=== PATIENT | female | born 1950 | race Caucasian/White ===

== ENCOUNTER 2019-01-14 19:38 | Emergency (ER) | payer MEDICARE, OTHER ==
[2019-01-14] MEDS ORDERED: Diphtheria,Pertussis(Acell),Tetanus Vaccine 0.5 ML Syringe IM ONE (19:47)
[2019-01-14] MEDS ORDERED: Lidocaine 2% 10 ML Amp INJECT ONE (20:14)
--- NOTE | 2019-01-14 20:41 | EDM.PDOC ---
ED HPI GENERAL MEDICAL PROBLEM - General Chief Complaint: Laceration Stated Complaint: LACERATION ON RING FINGER OF L HAND Time Seen by Provider: 01/14/19 19:44 Source of Information: Reports: Patient History Limitations: Reports: No Limitations - History of Present Illness INITIAL COMMENTS - FREE TEXT/NARRATIVE: Patient arrives after smashing her finger in between two posts while helping her son with his boat. Bleeding has stopped. Injury to left ring finger. No nail involvement. No other injuries. No other complaints. Onset: Today, Sudden Location: Reports: Upper Extremity, Left Left Finger-Ring Pain Score (Numeric/FACES): 4 - Related Data Allergies Allergy/AdvReac Type Severity Reaction Status Date / Time Sulfa (Sulfonamide Allergy Cannot Verified 01/14/19 20:30 Antibiotics) Remember Home Meds: Home Meds Lisinopril 10 mg PO DAILY 01/14/19 [History] Metoprolol Succinate [Toprol XL] 25 mg PO DAILY 01/14/19 [History] Past Medical History Cardiovascular History: Reports: Hypertension Social & Family History - Tobacco Use Smoking Status *Q: Unknown Ever Smoked ED ROS GENERAL - Review of Systems Review Of Systems: See Below Constitutional: Reports: No Symptoms HEENT: Reports: No Symptoms Respiratory: Reports: No Symptoms Cardiovascular: Reports: No Symptoms Endocrine: Reports: No Symptoms GI/Abdominal: Reports: No Symptoms : Reports: No Symptoms Musculoskeletal: Reports: No Symptoms Skin: Reports: Wound (left ring finger) Neurological: Reports: No Symptoms Psychiatric: Reports: No Symptoms Hematologic/Lymphatic: Reports: No Symptoms Immunologic: Reports: No Symptoms ED EXAM, GENERAL - Physical Exam Exam: See Below Exam Limited By: No Limitations General Appearance: Alert, WD/WN, No Apparent Distress Skin Exam: Wound/Incision (laceration to distal ring finger of left hand, wound also involves significant skin tear of distal finger tip) ED GENERAL MEDICAL PROCEDURES - Laceration/Wound Repair Left Distal Digit - 4th (Ring) Lac/wound length in cm: 1.5 Appearance: Irregular, Mildly Contaminated Distal NVT: Neuro & Vascular Intact, No Tendon Injury Local Anesthesia - Lidocaine (Xylocaine): 2% Plain Local Anesthetic Volume: 4cc Skin Prep: Chlorhexidine (Hibiciens) Exploration/Debridement/Repair: Wound Explored, In a Bloodless Field, Explored to Base, No Foreign Material Found Closed with: Sutures Suture Size: 4-0 Sterile Dressing Applied: Nurse Tetanus Status Addressed: Yes Complications: No Course - Vital Signs Last Recorded V/S: Last Vital Signs Temp 36.3 C 01/14/19 19:55 Pulse 84 01/14/19 19:55 Resp 18 01/14/19 19:55 BP 104/54 L 01/14/19 19:55 Pulse Ox 96 01/14/19 19:55 - Orders/Labs/Meds Orders: Active Orders 24 hr Category Date Time Status Vaccines to be Administered [RC] PER UNIT ROUTINE Care 01/14/19 19:47 Active Meds: Medications Discontinued Medications Generic Name Dose Route Start Last Admin Trade Name Freq PRN Reason Stop Dose Admin Diphtheria/Tetanus/Acell Pertussis 0.5 ml 01/14/19 19:47 01/14/19 20:14 Adacel IM 01/14/19 19:48 0.5 ml .ONCE ONE Administration Lidocaine HCl 10 ml 01/14/19 20:14 01/14/19 20:18 Xylocaine-Mpf 2% (Sterile-Nilton) INJECT 01/14/19 20:15 10 ml ONETIME ONE Administration - Re-Assessments/Exams Free Text/Narrative Re-Assessment/Exam: 01/14/19 20:46 Laceration repaired with 4-0 suture kit. Extreme distal tip of finger had entire 1st level of skin ripped away. Unable to make any repairs to this area. Was dressed with sterile bandage. Departure - Departure Time of Disposition: 20:48 Disposition: Home, Self-Care 01 Condition: Good Clinical Impression: Laceration of left ring finger - Discharge Information *PRESCRIPTION DRUG MONITORING PROGRAM REVIEWED*: Not Applicable *COPY OF PRESCRIPTION DRUG MONITORING REPORT IN PATIENT ARIADNE: Not Applicable Instructions: Amoxicillin; Clavulanic Acid tablets, Wound Infection, Easy-to- Read, Laceration Care, Adult, [id number], Probiotics Referrals: PCP,Not In Area [Primary Care Provider] - Forms: ED Department Discharge Additional Instructions: Plan 1. Follow up in the clinic for suture removal in 10-14 days or sooner if any symptoms arise or worsen 2. Take augmentin for the full course. Eat 1-2 servings of yogurt, take probiotics to prevent bacterial infection of the gut caused by taking antibiotics 3. Signs of infection include fever over 101.5F, increased redness, swelling, purulent drainage, hot to the touch, red streak originating from the wound 4. Leave dressing on for 1 week. Wash with soap and water after removal. 5. If you have any questions or concerns you can call the ED at any time, or see your primary care provider - Problem List & Annotations (1) Laceration of left ring finger SNOMED Code(s): 22324502492723290 Code(s): S61.215A - LACERATION W/O FB OF L RNG FNGR W/O DAMAGE TO NAIL, INIT Status: Acute Priority: Low Current Visit: Yes Qualifiers: Encounter type: initial encounter Damage to nail status: without damage Foreign body presence: without foreign body Qualified Code(s): S61.215A - Laceration without foreign body of left ring finger without damage to nail, initial encounter - Problem List Review Problem List Initiated/Reviewed/Updated: Yes - My Orders Last 24 Hours: My Active Orders 01/14/19 19:47 Vaccines to be Administered [RC] PER UNIT ROUTINE - Assessment/Plan Last 24 Hours: My Active Orders 01/14/19 19:47 Vaccines to be Administered [RC] PER UNIT ROUTINE Assessment:: laceration of left ring finger Plan: Plan 1. Follow up in the clinic for suture removal in 10-14 days or sooner if any symptoms arise or worsen 2. Take augmentin for the full course. Eat 1-2 servings of yogurt, take probiotics to prevent bacterial infection of the gut caused by taking antibiotics 3. Signs of infection include fever over 101.5F, increased redness, swelling, purulent drainage, hot to the touch, red streak originating from the wound 4. Leave dressing on for 1 week. Wash with soap and water after removal. 5. If you have any questions or concerns you can call the ED at any time, or see your primary care provider
== END 2019-01-14 20:54 | disposition home or self-care (01) ==
LOC: VM.ED 19:38
DX: S61.512A Laceration without foreign body of left wrist, initial encounter (principal); Z23 Encounter for immunization; I10 Essential (primary) hypertension; Z79.899 Other long term (current) drug therapy; Z88.2 Allergy status to sulfonamides; W23.1XXA Caught, crushed, jammed, or pinched between stationary objects, initial encounter
CPT/HCPCS: 12001; 90471; 90715; 99283; J2001